=== PATIENT | female | born 1990 | race Caucasian/White ===

== ENCOUNTER → 2017-11-21 | Outpatient (CLI) | payer BC ==
--- NOTE | 2017-11-21 14:50 | MRI ---
EXAM DESCRIPTION: Lumbar Spine w/o Contrast : Magnetic Resonance Imaging. CLINICAL HISTORY: LUMBAR RADICULOPATHY COMPARISON: Thoracic spine radiographs 07/12/2017. TECHNIQUE: Multiplanar, multiple standard sequences, non contrast MRI, lumbar spine. FINDINGS: L5-S1: Mild to moderate disc space loss. Disc desiccation. Posterior right T2 signal in the disc margin with 3 mm bulge abutting the thecal sac. Minimal hypertrophy of the left flavum ligament and left facet arthrosis with mild canal narrowing. Mild left foraminal narrowing. Right foramen patent. L4-5: Normal signal in the disc and disc space preserved. No significant bulging. Mild canal narrowing due to shortened bony pedicles. Bilateral foramina are patent. Posterior elements unremarkable. L3-4: Normal signal in the disc and normal disc space. Posterior elements are unremarkable. Canal and foramina are patent. L2-3: Normal signal in the disc and disc space preserved. Posterior elements unremarkable. Canal and foramina are patent. L1-2: Normal signal in the disc with disc space preserved. Minimal concavity of the superior L2 endplate. Posterior elements unremarkable. Canal and foramina are patent. Conus terminates at L1. T12-L1: Normal signal in the disc with disc space preserved. Posterior elements unremarkable. Canal and foramina are patent. L2-L5 levoscoliosis. Paravertebral soft tissues unremarkable.. Normal marrow signal in the remaining vertebral bodies and the posterior elements. Vertebral bodies are not compressed at any level. IMPRESSION: 1. Mild to moderate disc space loss with posterior broad-based disc bulge and annular fissure abutting the thecal sac. Minimal hypertrophy of the flavum ligaments. Left facet arthrosis. Mild left foraminal narrowing. 2. Moderate canal narrowing at L4-5 due to shortening of the bony pedicles which is most likely congenital. 3. Levoscoliosis lumbar spine. Electronically signed by: Ananda Whitney MD 11/21/2017 2:48 PM CDT
== END ==
LOC: MRI 07:00
PROVIDERS: ATTEND Physician Assistant Medical
DX: M51.36 Other intervertebral disc degeneration, lumbar region (principal); M51.26 Other intervertebral disc displacement, lumbar region

== ENCOUNTER → 2019-04-30 | Outpatient (CLI) | payer BC ==
--- NOTE | 2019-04-30 13:14 | MRI ---
PROVIDED CLINICAL HISTORY/REASON FOR EXAM: RADICULOPATHY TECHNIQUE: Multiplanar, multisequence MRI examination performed of the lumbar spine without intravenous contrast material. COMPARISON: 11/21/2017 FINDINGS: Five lumbar type vertebra are assumed. The designated L5/S1 disc space is at axial T2 image 4. Alignment: 2 mm degenerative retrolisthesis of L5 on S1. Fracture: None present. Paraspinal Soft Tissues: Unremarkable. Retroperitoneum: Visible structures are unremarkable. Conus Medullaris: Termination at L1 level. Morphology is normal. T12/L1: No significant abnormality. L1/2: No significant abnormality. L2/3: No significant abnormality. L3/4: Mild facet hypertrophy. No significant stenosis. L4/5: Mild facet hypertrophy. No significant stenosis. L5/S1: Disc desiccation with loss of disc space height. Small symmetric disc bulge with a superimposed annular fissure. No significant central canal stenosis. Bilateral facet hypertrophy. Mild left neural foraminal narrowing. IMPRESSION: Similar acquired degenerative changes of the lumbar spine most pronounced at L5/S1 as above. Electronically signed by: Wes Lee MD 04/30/2019 1:13 PM CDT
== END ==
LOC: MRI 09:09
PROVIDERS: ATTEND Family Medicine Sports Medicine
DX: M47.27 Other spondylosis with radiculopathy, lumbosacral region (principal)